=== PATIENT | male | born 1995 | race Caucasian/White ===

== ENCOUNTER 2022-05-01 12:15 | Emergency (ER) | payer OTHER ==
[~2022-05-01] VITALS: Ht 177.8 cm; Wt 61.2 kg
--- NOTE | 2022-05-01 12:15 | NUR ---
Patient triaged and placed in waiting room. VSS and patient appears in no acute distress at this time. Accompanied by SELF, awaiting available bed, and MD notified of need for MSE.
[2022-05-01 12:20] VITALS: BP_SYST 124
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
--- NOTE | 2022-05-01 13:14 | NUR ---
TAKEN TO RADIOLOGY VIA AMBULATORY
--- NOTE | 2022-05-01 15:10 | NUR ---
CALLED TO SIGN DISCHARGE PAPERS, UNABLE TO LOCATE PT.
[2022-05-01] MEDS ORDERED: ACET-2634 PO (15:27)
[2022-05-01] MEDS ORDERED: LIDO15CR11 TP (15:27)
[2022-05-01] MEDS ORDERED: IBUP-1969 PO (15:27)
--- NOTE | 2022-05-01 15:52 | NUR ---
Patient given written and verbal discharge instructions and verbalizes understanding. ER MD discussed with patient the results and treatment provided. Patient in stable condition. ID arm band removed. Rx of TYLENOL, IBUPROFEN, LIDOCAINE given. Patient educated on pain management and to follow up with PMD. Pain Scale 0/10. Opportunity for questions provided and answered. Medication side effect fact sheet provided.
== END 2022-05-01 15:51 | disposition home or self-care (01) ==
LOC: SED 12:15
DX: S13.4XXA Sprain of ligaments of cervical spine, initial encounter (principal); F17.200 Nicotine dependence, unspecified, uncomplicated; F12.90 Cannabis use, unspecified, uncomplicated; V89.2XXA Person injured in unspecified motor-vehicle accident, traffic, initial encounter; Y93.89 Activity, other specified; Y92.89 Other specified places as the place of occurrence of the external cause; Y99.8 Other external cause status
CPT/HCPCS: 70450-TC; 72125-TC; 76376; 99284